=== PATIENT | male | born 1950 | race Two or more races ===

== ENCOUNTER 2019-02-23 22:57 | Emergency (ER) | payer MEDICARE, OTHER ==
--- NOTE | 2019-02-23 23:35 | ED ---
Lower Extremity - HPI Summary HPI Summary: Patient complains of left ankle pain after missing the bottom step of a staircase and landing on it awkwardly this evening. Denies any other pain, injury or symptoms. - History of Current Complaint Chief Complaint: EDExtremityLower Stated Complaint: TWISTED ANKLE PER PT Time Seen by Provider: 02/23/19 23:33 Hx Obtained From: Patient Mechanism Of Injury: Twisted Onset of Pain: Immediate Onset/Duration: Hours Severity Initially: Moderate Severity Currently: Moderate Pain Intensity: 7 Pain Scale Used: 0-10 Numeric Timing: Constant Location: Is Discrete @ Character Of Pain: Dull, Aching, Throbbing Associated Signs And Symptoms: Positive: Swelling Aggravating Factor(s): Standing, Ambulation Alleviating Factor(s): Rest, Elevation Able to Bear Weight: Yes - Allergies/Home Medications Allergies/Adverse Reactions: Allergies Allergy/AdvReac Type Severity Reaction Status Date / Time No Known Allergies Allergy Verified 02/23/19 23:00 Home Medications: Home Medications Aspirin 81 mg CHEW TAB* 81 mg PO DAILY 02/24/19 [History Confirmed 02/24/19] NK [No Home Medications Reported] 02/24/19 [History Confirmed 02/24/19] PMH/Surg Hx/FS Hx/Imm Hx Endocrine/Hematology History: Denies: Hx Anticoagulant Therapy Cardiovascular History: Denies: Hx Pacemaker/ICD History: Denies: Hx Dialysis Sensory History: Denies: Hx Eye Prosthesis Opthamlomology History: Denies: Hx Legally Blind EENT History: Denies: Hx Deafness Neurological History: Denies: Hx Developmental Delay Infectious Disease History: No Infectious Disease History: Denies: Traveled Outside the [place] in Last 30 Days - Family History Known Family History: Positive: Non-Contributory - Social History Alcohol Use: Occasionally Hx Substance Use: No Hx Tobacco Use: No Review of Systems Constitutional: Negative Eyes: Negative ENT: Negative Cardiovascular: Negative Respiratory: Negative Gastrointestinal: Negative Genitourinary: Negative Musculoskeletal: Other Skin: Negative Neurological: Negative Psychological: Normal All Other Systems Reviewed And Are Negative: Yes Physical Exam - Summary Physical Exam Summary: Swelling to lateral malleolus of left ankle. PMS intact distally. Full range of motion of left ankle with pain. No erythema, ecchymosis, extra warmth. Triage Information Reviewed: Yes Vital Signs On Initial Exam: Initial Vitals Temp Pulse Resp BP Pulse Ox 99 F 81 18 159/91 98 02/23/19 22:58 02/23/19 22:58 02/23/19 22:58 02/23/19 22:58 02/23/19 22:58 Vital Signs Reviewed: Yes Appearance: Positive: Well-Appearing Skin: Positive: Warm Head/Face: Positive: Normal Head/Face Inspection Eyes: Positive: Normal Neck: Positive: Supple Respiratory/Lung Sounds: Positive: Clear to Auscultation Cardiovascular: Positive: Normal Abdomen Description: Positive: Nontender Musculoskeletal: Positive: Normal Neurological: Positive: Normal Psychiatric: Positive: Normal AVPU Assessment: Alert - Babs Coma Scale Best Eye Response: 4 - Spontaneous Best Motor Response: 6 - Obeys Commands Best Verbal Response: 5 - Oriented Coma Scale Total: 15 Diagnostics - Vital Signs Vital Signs Temp Pulse Resp BP Pulse Ox 02/23/19 22:58 99 F 81 18 159/91 98 - Laboratory Lab Statement: Any lab studies that have been ordered have been reviewed, and results considered in the medical decision making process. Lower Extremity Course/Dx - Course Course Of Treatment: Patient complains of left ankle pain after missing the bottom step of a staircase and landing on it awkwardly this evening. Denies any other pain, injury or symptoms. Vital signs within normal limits. X-ray of left ankle negative for fracture. Ankle gel splint applied by nurse. To facilitate healing - Diagnoses Provider Diagnoses: Left ankle sprain Discharge ED - Sign-Out/Discharge Documenting (check all that apply): Patient Departure Patient Received Moderate/Deep Sedation with Procedure: No - Discharge Plan Condition: Stable Disposition: HOME Patient Education Materials: Ankle Sprain (ED), Ankle Stirrup Splint (ED) Referrals: No Primary Care Phys,NOPCP [Primary Care Provider] - Augie Escalante MD [Medical Doctor] - Additional Instructions: Ice and ibuprofen for left ankle pain and swelling. Wear brace to facilitate healing. Weightbearing as tolerated. Move ankle gently to promote blood flow. If pain persists more than 1 week follow-up with orthopedics Dr. Escalante for further evaluation. - Billing Disposition and Condition Condition: STABLE Disposition: Home - Attestation Statements Provider Attestation: I was available for consult. This patient was seen by the [facility]. The patient was not presented to, seen by, or examined by me. Fernie Gayle MD
[2019-02-23] MEDS ORDERED: Ibuprofen TAB* 400 MG PO ONE (23:48)
[2019-02-24 00:48] VITALS: BP 154/78
== END 2019-02-24 00:45 | disposition home or self-care (01) ==
LOC: ED 22:57
DX: S93.402A Sprain of unspecified ligament of left ankle, initial encounter (principal); X50.1XXA Overexertion from prolonged static or awkward postures, initial encounter; Y92.89 Other specified places as the place of occurrence of the external cause; Z79.82 Long term (current) use of aspirin
CPT/HCPCS: 99282; A9270-GY